=== PATIENT | female | born 1970 | race American Indian/Alaskan Native ===

== ENCOUNTER 2016-08-18 14:47 | Inpatient (IN) | payer OTHER ==
--- NOTE | 2016-08-18 16:53 | XRay Report ---
ROUTINE CHEST, TWO VIEWS: Shortness of breath. PA and lateral views demonstrate the heart and mediastinal contour to be of normal size and shape. The lungs are clear and fully expanded and the soft tissues and bony structures are normal. IMPRESSION: Normal study.
[2016-08-18 17:51] LABS: Basophils % (Auto) 0.5 % (0.0-1.8); Eosinophils % (Auto) 0.3 % (0.0-4.3); Mean Corpuscular HGB Conc 30 % (30-34); Platelet Count 267 K/mm3 (140-440); Red Blood Count 4.75 M/mm3 (3.65-5.03); Red Cell Distribution Width 18.9 % (13.2-15.2); White Blood Count 10.9 K/mm3 (4.5-11.0)
[2016-08-18 17:52] LABS: Mean Corpuscular Hemoglobin 21 pg (28-32); Mean Corpuscular Volume 70 fl (79-97)
[2016-08-18 18:10] LABS: Anion Gap 17 mmol/L; Blood Urea Nitrogen 7 mg/dL (7-17); Calcium 8.8 mg/dL (8.4-10.2); Carbon Dioxide 23 mmol/L (22-30); Chloride 99.6 mmol/L (98-107); Glucose 80 mg/dL (65-100); Potassium 3.9 mmol/L (3.6-5.0); Sodium 136 mmol/L (137-145)
[2016-08-18 18:50] LABS: Cholesterol 147 mg/dL (50-199); HDL Cholesterol 38 mg/dL (40-59); LDL Cholesterol,Direct 95 mg/dL (50-130); Triglycerides 74 mg/dL (2-149)
--- NOTE | 2016-08-18 23:57 | Emergency Department Report ---
HPI - General Chief Complaint: Chest Pain Time Seen by Provider: 08/18/16 23:29 - HPI HPI: This is a 46-year-old Afro-[place] female who was dropped off to be seen today with complaint of a one-week history of midsternal chest pain has been going on intermittently all week. Patient thought it is been indigestion because she has a history of gastritis. She tried some [place] for this without any relief. However 2 days ago she had some sharper pain that concerned her. And once again, this morning, the patient had a change with some intense burning sensation that woke her up from sleep. It radiates to the back as well as to the right jaw and shoulder. There is some intermittent shortness of breath. The patient took some Aleve this morning for some sciatica but not for her chest discomfort and it did not provide any relief. She does not have a primary care doctor. She denies any tobacco or illicit drug use or abuse. No recent travel or sick contacts at home. She denies any history of ME, CVA, PE/ DVT. ED Past Medical Hx - Past Medical History Hx Diabetes: Yes (GESTATIONAL WITH 1ST ) Additional medical history: GASTRITIS. OBESITY - Surgical History Additional Surgical History: TONSILLECTOMY. SEPTOPLASTY ? D & C. RIGHT FOOT ( BONE SHAVED) - Social History Smoking Status: Never Smoker Substance Use Type: None ED Review of Systems ROS: Stated complaint: CHEST PAIN/JAW PAIN Other details as noted in HPI Comment: All other systems reviewed and negative Constitutional: denies: chills, fever Eyes: denies: eye pain, eye discharge, vision change Respiratory: shortness of breath. denies: cough Cardiovascular: chest pain. denies: palpitations Gastrointestinal: denies: abdominal pain, nausea, diarrhea Genitourinary: denies: urgency, dysuria, discharge Musculoskeletal: denies: back pain, joint swelling, arthralgia Skin: denies: rash, lesions Neurological: denies: headache, weakness, paresthesias Physical Exam - Physical Exam Vital Signs: Vital Signs 08/18/16 15:08 Temperature 97.6 F Pulse Rate 100 H Respiratory 18 Rate Blood Pressure 160/114 O2 Sat by Pulse 100 Oximetry Physical Exam: GENERAL: The patient is well-developed well-nourished. HEENT: Normocephalic. Atraumatic. Extraocular motions are intact. Patient has moist mucous membranes. Pupils equal reactive to light bilaterally. NECK: Supple. Trachea is midline. CHEST/LUNGS: Clear to auscultation. There is no respiratory distress noted. Chest pain is not reproducible to palpation the chest wall. HEART/CARDIOVASCULAR: Regular. There is no tachycardia. There is no gallop rub or murmur. ABDOMEN: Abdomen is soft, nontender. Patient has normal bowel sounds. There is no abdominal distention. Obese habitus. SKIN: Skin is warm and dry. NEURO: The patient is awake, alert, and oriented. The patient is cooperative. The patient has no focal neurologic deficits. The patient has normal speech. MUSCULOSKELETAL: There is no tenderness or deformity. There is no limitation range of motion. There is no evidence of acute injury. ED Course Vital Signs 08/18/16 15:08 Temperature 97.6 F Pulse Rate 100 H Respiratory 18 Rate Blood Pressure 160/114 O2 Sat by Pulse 100 Oximetry ED Medical Decision Making - Lab Data Result diagrams: 08/18/16 17:33 08/18/16 17:33 - EKG Data -: EKG Interpreted by Me EKG shows normal: sinus rhythm, axis, intervals, QRS complexes, ST-T waves ( nonspecific ST-T waves) Rate: tachycardia (101 bpm) - EKG Data When compared to previous EKG there are: previous EKG unavailable Interpretation: nonspecific ST-T wave chana - Radiology Data Radiology results: report reviewed, image reviewed interpreted by me: Chest x-ray did not show any acute process. Heart is normal shape and size. No effusions. No pneumothorax. No signs of pneumonia seen. CT angiography of the chest does not show any signs of pulmonary embolism or aortic dissection or any acute process. - Medical Decision Making 46 year old female presents the emergency department with some intermittent midsternal chest pain over the past week. EKG does not show any signs of ST elevation ME, ischemia or dysrhythmia. Chest x-ray does not show any acute process. Patient's first troponin was elevated at 0.05. However the patient's second troponin came back even more elevated at 0.3. CT angiography was negative for pulmonary embolism or dissection. Patient was started on heparin and will be admitted to hospital for cardio consultation. Patient has been accepted for admission by the hospitalist, Dr. Evans. - Differential Diagnosis ME, PE, CHF, Pneumonia, GERD Critical Care Time: No Critical care attestation.: If time is entered above; I have spent that time in minutes in the direct care of this critically ill patient, excluding procedure time. ED Disposition Clinical Impression: NSTEMI (non-ST elevated myocardial infarction) Hypertension Qualifiers: Hypertension type: essential hypertension Qualified Code(s): I10 - Essential ( primary) hypertension Chest pain Qualifiers: Chest pain type: unspecified Qualified Code(s): R07.9 - Chest pain, unspecified Disposition: OP ADMITTED IP TO THIS HOSP Is pt being admited?: Yes Does the pt Need Aspirin: Yes Condition: Stable Instructions: Hypertension (ED), Chest Pain (ED) Referrals: PRIMARY CARE, [Primary Care Provider] - 3-5 Days Time of Disposition: 02:36
[2016-08-19 00:36] LABS: INR 1.07 (0.87-1.13)
[2016-08-19 00:37] LABS: Partial Thromboplastin Time 27.4 Sec. (24.2-36.6)
[2016-08-19] MEDS ORDERED: NACL ONE (00:56)
--- NOTE | 2016-08-19 01:36 | Admit Criteria Form ---
Admission Criteria Documentation: CARDIOLOGY GRG Clinical Indications for Admission to Inpatient Care ( Place 'X' for any and all applicable criteria): Hospital admission is needed for appropriate care of the patient because of ANY ONE of the following (1): [ ] I. Hemodynamic instability as indicated by ALL of the following (1)(2)(3) (4)(5) [ ]a) Vital signs or other findings not as expected for chronic patient condition or baseline [ ]b) Instability indicated by ANY ONE of the following: [ ]i) Hypotension [ ]ii) Symptomatic Tachycardia unresponsive to treatment ( e.g., analgesia, fluids, sedation as indicated) [ ]iii) Inadequate perfusion indicated by ANY ONE of the following: [ ] 1) Lactic acidosis (> 2 mmol/L) [ ] 2) New abnormal capillary refill (> 3 seconds) [ ] 3) Reduced urine output [ ] 4) New altered mental status [ ]iv) Orthostatic vital sign changes unresponsive to treatment (e.g., fluids) [ ]v) IV inotropic or vasopressor medication required to maintain adequate blood pressure or perfusion [ ] II. Severe heart failure as indicated by ANY ONE of the following(17)(18) [ ]a) Respiratory distress [ ]b) Hypotension [ ]c) Anasarca (refractory to outpatient therapy) [ ]d) Cardiac arrhythmias of immediate concern [ ]e) Myocardial ischemia [ ] III. Cardiac arrhythmias or findings of immediate concern indicated by ANY ONE of the following (19)(20): [ ] a) Heart rhythms that are inherently dangerous or unstable indicated by ANY ONE of the following (21)(22)(23): [ ] i) Resuscitated ventricular fibrillation or cardiac arrest [ ] ii) Ventricular escape rhythm [ ] iii) Sustained ventricular tachycardia (30 seconds or more of ventricular rhythm at greater than 100 beats per minute) [ ] iv) Nonsustained ventricular tachycardia and ANY ONE of the following: [ ] 1) Suspected cardiac ischemia as cause or consequence of ventricular tachycardia [ ] 2) In setting of acute myocarditis [ ] b) Unstable cardiac conduction defects indicated by ANY ONE of the following(23)(24)(25) [ ] i) Type II second-degree atrioventricular block [ ]ii) Third-degree atrioventricular block [ ]iii) New-onset left bundle branch block with suspected myocardial ischemia [ ]c) Any heart rhythm and ANY ONE of the following (21)(22)(26)(27) (28) [ ] i) Continuous long-term ECG monitoring needed (e.g., initiation of drug requiring monitoring for more than 24 hours) [ ] ii) Patient has automatic implanted cardioverter defibrillator that is repeatedly firing, malfunctioning, or in need of immediate adjustment of settings beyond the scope of ambulatory or observation care [ ]d) Heart rhythms of concern due to ANY ONE of the following: [ ] i) Hypotension [ ] ii) Respiratory distress [ ] iii) Association with other significant symptoms (e.g., bradycardia with syncope or ongoing dizziness, supraventricular tachycardia with chest pain (14)(15)(17) [ ] IV. Monitoring for cardiac contusion beyond the scope of observation care needed [A](30)(31)(32) [ ] V. Surgical or device complication (e.g., valve replacement complication , pacemaker dysfunction) (35)(41)(44)(45)(46) [ ] . Inpatient palliative care needed. [B](49) Also use Inpatient Palliative Care Criteria [ ] VII. Nonbacterial thrombotic (marantic) endocarditis (36)(43)(47)(48) [ X] VIII. Cardiology condition, symptom, or finding for which emergency and observation care has failed or are not considered appropriate. [ ] IX. Acute valvular disease requiring inpatient as indicated by ANY ONE of the following (41) [ ]a) Acute valvular regurgitation (42) [ ]b) Noninfectious valvulitis (43) [ ]c) Obstructive valve thrombosis [ ]d) Paravalvular leak [ ]e) Other significant valvular disorder remaining after emergency or observation level of care (as appropriate) [ ]X. Pericardial disease requiring inpatient treatment as indicated by ANY ONE of the following (33)(34)(35)(36)(37) [ ]a) Suspected tamponade (38)(39)(40) [ ]b) Hemopericardium [ ]c) Other significant pericardial disorder remaining after emergency or observation level of care (as appropriate) [ ] XI. Cardiac ischemia beyond scope of emergency and observation care. [ ] XII. Hypertension requiring inpatient treatment as indicated by ANY ONE of the following (6)(7)(8) [ ]a) SBP greater than 220 mm Hg or DBP greater than 120 mmHg despite treatment [ ]b) SBP greater than 140 mm Hg or DBP greater than 100 mm Hg with evidence of acute end organ damage as indicated by ANY ONE of the following [ ] i) Altered mental status [ ] ii) Acute renal failure as indicated by new onset of ANY ONE of the following (9)(10)(11)(12)(13) [ ]1) 3-fold rise in serum creatinine from baseline [ ]2) Serum creatinine greater than 4 mg/dL ( 354 micromoles/L) with acute rise greater than 0.5 mg/dL (44.2 micromoles/L) [ ]3) Reduction of more than 75% in estimated glomerular filtration rate from baseline [ ]4) Estimated glomerular filtration rate less than 35 mL/min/1.73m2 (0.59 mL/sec/1.73m2) in child up to 18 years of age [ ]5) Cessation of urine output indicated by ALL of the following [ ]A. Adequate volume status [ ]B. Inadequate urine output as indicated by ANY ONE of the following [ ]a. Urine output less than 0.3 mL/kg/hr for 24 hours [ ]b. Anuria (urine output less than 0.1 mL/kg/hr) for 12 hours [ ] iii) Aortic dissection [ ] iv) Myocardial Ischemia [ ] v) Left ventricular heart failure [ ]vi) Retinal Hemorrhage [ ]vii) Other significant finding [ ]c) Hypertension in child requiring inpatient treatment as indicated by ALL of the following(14)(15)(16) [ ] i) Outpatient treatment not effective, not available, or not appropriate [ ]ii) SBP or DBP greater than 95th percentile for age [ ]iii) Evidence of acute end organ damage as indicated by ANY ONE of the following [ ]1) Altered mental status [ ]2) Acute renal failure as indicated by new onset of ANY ONE of the following(9)(10)(11)(12)(13) [ ]A. 3-fold rise in serum creatinine from baseline [ ]B. Serum creatinine greater than 4 mg/dL (354 micromoles/L) with acute rise greater than 0.5 mg/dL (44.2 micromoles/L) [ ]C. Reduction of more than 75% in estimated glomerular filtration rate from baseline [ ]D. Estimated glomerular filtration rate less than 35 mL/min/1.73m2 (0.59 mL/sec/1.73m2) in child up to 18 years of age [ ]E. Cessation of urine output indicated by ALL of the following [ ]a. Adequate volume status [ ]b. Inadequate urine output as indicated by ANY ONE of the following [ ]i) Urine output less than 0.3 mL/kg/hr for 24 hours [ ]ii) Anuria ( urine output less than 0.1 mL/kg/hr) for 12 hours [ ]3) Severe headache [ ]4) Visual disturbance [ ]5) Retinal hemorrhage [ ]6) Other significant finding [ ]XIII. Complications of transplanted heart indicated by ANY ONE of the following(61): [ ]a) Acute graft rejection requiring inpatient management (eg, intravenous immunosuppression)(62)(63) [ ]b) Acute graft heart failure indicated by ANY ONE of the following(64): [ ]i) Hemodynamic instability [ ]ii) Cardiac arrhythmias of immediate concern [ ]iii) Pulmonary edema that is very severe (eg, mechanical ventilation needed, imminent or likely, need for 100% oxygen to keep oxygen saturation above 90%) [ ]iv) Pulmonary edema that is persistent as indicated by ALL of the following: [ ]1) New need for oxygen therapy to keep oxygen saturation above 90% (or increased FiO2 need from baseline) [ ]2) Has not improved sufficiently with emergency department or observation care IV diuretics or other heart failure treatments[E] [ ]v) Altered mental status that is severe or persistent [ ]vi) Increased creatinine (new on laboratory test) with reduction of more than 50% in estimated glomerular filtration rate from baseline [ ]vii) Progressively (ongoing) rising creatinine (known from past laboratory test) with reduction of more than 25% in estimated glomerular filtration rate from baseline [ ]viii) Acute renal failure [ ]ix) Acute peripheral ischemia (eg, examination shows pulseless, cool, mottled, or cyanotic extremity) [ ]x) Pulmonary artery catheter monitoring needed [ ]xi) Other sign or symptom of heart failure requiring inpatient treatment (ie, too severe or not responsive to outpatient and observation care treatment) [ ]c) Infection requiring inpatient management (eg, Hemodynamic instability, need for intravenous antimicrobial treatment)(66)(67)(68)(69)(70) [ ]d) Cardiac allograft vasculopathy requiring inpatient management ( eg evidence of cardiac ischemia)(71) [ ]e) Other complication of transplanted heart (eg, stroke, severe pulmonary hypertension, severe valvular dysfunction) requiring inpatient management(72) The original [facility] content created by [facility] has been revised. The portions of the content which have been revised are identified through the use of italic text or in bold, and [facility] has neither reviewed nor approved the modified material. All other unmodified content is copyright [facility] [employer]. Please see references footnoted in the original [facility] [employer] edition 2016 Admission Criteria Met: Yes
[2016-08-19] MEDS ORDERED: HEPARIN 10,000 UNITS/10 ML IV ONE (02:05)
[2016-08-19] MEDS ORDERED: NORMODYNE IV ONE (02:06)
--- NOTE | 2016-08-19 02:11 | Cat Scan Report ---
FINAL REPORT EXAM: CT ANGIO CHEST HISTORY: CP, elevated dimer TECHNIQUE: Enhanced CT of the chest at 2.5 mm axial intervals following a pulmonary embolism protocol. Coronal and sagittal imaging were also obtained. Oblique coronal MIP projections were obtained. PRIORS: None. FINDINGS: There is no evidence for pulmonary embolism in the main pulmonary artery, right and left pulmonary arteries or their major distributions. However, CT does not exclude distal pulmonary emboli. Otherwise, the lung parenchyma are expanded and clear with no evidence for parenchymal nodules, infiltrates, congestion, or pleural effusion. There is no evidence for mediastinal, hilar, or axillary adenopathy. Cardiovascular structures are within normal limits. Images through the lung bases include the upper abdomen which show no abnormalities of the visualized abdominal viscera. There is an incidental diastasis in the posterior left hemidiaphragm through which abdominal fat is herniated into the left lung base posteriorly. Bony structures demonstrate no focal abnormalities. Anterior osteophytes are present off the lower thoracic spine. Degenerative disc changes are also noted throughout the thoracic spine. IMPRESSION: No evidence for pulmonary embolism.
[2016-08-19] MEDS ORDERED: BABY ASPIRIN PO ONE (02:36)
[2016-08-19 02:41] LABS: INR 1.1 (0.87-1.13)
[2016-08-19] MEDS: HEPARIN/ 0.45% NACL-25,000 UNIT/500 ML 25,000 UNIT/500 ML BAG IV SCH ×3 (02:41→21:19)
[2016-08-19 02:42] LABS: Partial Thromboplastin Time 28.5 Sec. (24.2-36.6)
[2016-08-19] MEDS ORDERED: DULCOLAX PR PRN (04:02)
[2016-08-19] MEDS ORDERED: TYLENOL PO PRN (04:02)
[2016-08-19] MEDS ORDERED: ZOFRAN IV PRN (04:02)
[2016-08-19] MEDS ORDERED: MILK OF MAGNESIA PO PRN (04:02)
--- NOTE | 2016-08-19 04:02 | Event Note ---
Date: 08/19/16 See H/p in reports NSTEMI
[2016-08-19] MEDS ORDERED: MORPHINE ONE (04:03)
[2016-08-19] MEDS ORDERED: SODIUM CHLORIDE FLUSH SYRINGE 10 ML IV PRN (04:13)
[2016-08-19] MEDS ORDERED: MORPHINE IV ONE (04:16)
[2016-08-19] MEDS ORDERED: ZOFRAN ONE (04:39)
[2016-08-19 06:04] LABS: Creatine Kinase MB 40.9 ng/mL (0.0-4.0)
[2016-08-19] MEDS ORDERED: LEXISCAN IV ONE (08:01)
[2016-08-19 08:57] LABS: Creatine Kinase MB 42.6 ng/mL (0.0-4.0)
[2016-08-19] MEDS: PERCOCET 5/325 PO PRN (10:33)
[2016-08-19] MEDS: COREG PO SCH ×2 (10:33→21:40)
[2016-08-19] MEDS: COZAAR PO SCH (10:34)
--- NOTE | 2016-08-19 11:27 | Consultation ---
History of Present Illness Consult date: 08/19/16 Consult reason: abnormal cardiac enzymes History of present illness: Impression Unstable Angina NSTEMI Plan Cardiac cath recommended pt will discuss with family about whether to proceed IV heparin for 48 hrs, pit is chest pain free ASA, statin, b-sharifa Past History Social history: no significant social history. denies: smoking Medications and Allergies Allergies Allergy/AdvReac Type Severity Reaction Status Date / Time latex Allergy Anaphylaxis Verified 08/18/16 15:06 tree nut Allergy Anaphylaxis Verified 08/18/16 15:06 Active Meds: Active Medications Acetaminophen (Tylenol) 650 mg PO Q4H PRN PRN Reason: Pain MILD(1-3)/Fever >100.5/CASTAEÑDA Bisacodyl (Dulcolax) 10 mg [place] QDAY PRN PRN Reason: Constipation unrelieved by MOM Carvedilol (Coreg) 12.5 mg PO BID ALEKSANDAR Last Admin: 08/19/16 10:33 Dose: 12.5 mg Hydromorphone HCl (Dilaudid) 0.5 mg IV Q3H PRN PRN Reason: Pain , Severe (7-10) Heparin Sodium/Sodium Chloride (Heparin/ 0.45% Nacl-25,000 Unit/500 Ml) 25,000 unit in 500 mls @ 20 mls/hr IV TITRATE ALEKSANDAR; 1,000 UNITS/HR PRN Reason: Protocol Last Admin: 08/19/16 10:45 Dose: 1,150 units/hr, 23 mls/hr Dextrose/Sodium Chloride (D5/0.45ns) 1,000 mls @ 75 mls/hr IV DIRECT ALEKSANDAR Losartan Potassium (Cozaar) 100 mg PO QDAY ALEKSANDAR Last Admin: 08/19/16 10:34 Dose: 100 mg Magnesium Hydroxide (Milk Of Magnesia) 30 ml PO Q4H PRN PRN Reason: Constipation Ondansetron HCl (Zofran) 4 mg IV Q8H PRN PRN Reason: N/V unrelieved by Reglan Oxycodone/Acetaminophen (Percocet 5/325) 1 tab PO Q6H PRN PRN Reason: Pain, Moderate (4-6) Last Admin: 08/19/16 10:33 Dose: 1 tab Sodium Chloride (Sodium Chloride Flush Syringe 10 Ml) 10 ml IV PRN PRN PRN Reason: LINE FLUSH Review of Systems All systems: negative (in impression) Physical Examination Vital Signs Temp Pulse Resp BP Pulse Ox 97.6 F 100 H 18 160/114 100 08/18/16 15:08 08/18/16 15:08 08/18/16 15:08 08/18/16 15:08 08/18/16 15:08 General appearance: no acute distress HEENT: Positive: PERRL, EOMI Neck: Positive: neck supple Cardiac: Positive: Reg Rate and Rhythm, S1/S2 Lungs: Positive: Normal Exam Neuro: Positive: Grossly Intact Abdomen: Positive: Unremarkable, Soft Results 08/18/16 17:33 08/18/16 17:33 Cardiac Enzymes 08/19/16 08/19/16 Range/Units 05:12 07:41 CK-MB (CK-2) 40.9 H 42.6 H (0.0-4.0) ng/mL
[2016-08-19] MEDS ORDERED: ASPIRIN PO ONE (11:28)
--- NOTE | 2016-08-19 15:00 | History and Physical Report ---
CHIEF COMPLAINT: Left-sided chest pain for 1 week. HISTORY OF PRESENT ILLNESS: A 46-year-old -[place] female with history of obesity and gastritis, comes in for left-sided chest pain of 1 week duration. The patient has been thinking that it is indigestion and gastritis. Pain is about 6-7 on a scale of 1-10. It wakes her from sleep. It radiates to the right jaw and shoulder. Intermittent shortness of breath present. No palpitations. No diaphoresis. DEAN score is zero. PAST MEDICAL HISTORY: Gestational diabetes, gastritis, and obesity. PAST SURGICAL HISTORY: Tonsillectomy and septoplasty, D and C and right foot surgery. SOCIAL HISTORY: Does not smoke. No alcohol, no recreational drugs. FAMILY HISTORY: Significant for hypertension. REVIEW OF SYSTEMS: Other than chest pain, 14-point review of systems negative. Slight shortness of breath present. All systems reviewed and essentially negative. PHYSICAL EXAMINATION: GENERAL: Middle-aged female, cooperative during examination. VITAL SIGNS: Blood pressure 160/114, temperature is 97.6, pulse is 100, respiratory rate is 18. HEENT: Unremarkable. Pupils equal and reactive. NECK: Supple, no lymphadenopathy, no thyromegaly. LUNGS: Clear to auscultation and percussion. Good air entry. CARDIOVASCULAR: S1, S2 heard. No gallop, no murmur, no rub. Apical impulse in left fifth intercostal space and midclavicular line. ABDOMEN: Soft and benign. No hepatosplenomegaly. No guarding, no rigidity. Hernial orifices are normal. EXTREMITIES: Good pedal pulses. No pedal edema. CENTRAL NERVOUS SYSTEM: Alert and oriented x 4, nonfocal exam. LABORATORY DATA: EKG shows ST-T wave nonspecific changes. Heart rate of 101. CT angiography does not show any pulmonary embolism. Labs, electrolytes are normal. Sodium is 136, slightly low. H and H are 10.0 and 33.0, slightly anemic. ASSESSMENT AND PLAN: 1. Chest pain, rule out myocardial infarction, chest pain protocol. Serial cardiac enzymes and Lexiscan scan. 2. Hypertension, new onset. 3. Losartan 100 mg daily started. The patient does not take any medications for hypertension 4. Obesity. The patient is counseled. 5. Deep venous thrombosis prophylaxis, Lovenox 40 mg subcutaneously daily. [facility]# [id number] JEAN/CARMEN
[2016-08-19] MEDS: DILAUDID IV PRN (19:34)
[2016-08-19] MEDS: D5/0.45NS 1,000 ML IV SCH (19:35)
[2016-08-20] MEDS: HEPARIN/ 0.45% NACL-25,000 UNIT/500 ML 25,000 UNIT/500 ML BAG IV SCH ×3 (01:16→23:57)
[2016-08-20 08:26] LABS: Basophils % (Auto) 0.2 % (0.0-1.8); Eosinophils % (Auto) 0.1 % (0.0-4.3); Mean Corpuscular HGB Conc 30 % (30-34); Mean Corpuscular Volume 70 fl (79-97); Platelet Count 249 K/mm3 (140-440); Red Blood Count 4.29 M/mm3 (3.65-5.03); Red Cell Distribution Width 18.5 % (13.2-15.2)
[2016-08-20 08:34] LABS: Hemoglobin 8.9 gm/dl (10.1-14.3)
[2016-08-20 08:35] LABS: Hematocrit 30.1 % (30.3-42.9); Mean Corpuscular Hemoglobin 21 pg (28-32)
[2016-08-20 08:48] LABS: Anion Gap 16 mmol/L; BUN/Creatinine Ratio 6.66; Blood Urea Nitrogen 4 mg/dL (7-17); Calcium 8.6 mg/dL (8.4-10.2); Carbon Dioxide 23 mmol/L (22-30); Chloride 102.7 mmol/L (98-107); Glucose 116 mg/dL (65-100); Sodium 138 mmol/L (137-145)
--- NOTE | 2016-08-20 11:02 | Progress Note ---
Subjective Date of service: 08/20/16 Interval history: Impression Unstable Angina NSTEMI Plan Cardiac cath recommended will proceed on Sunday IV heparin for 48 hrs, pit is chest pain free ASA, statin, b-sharifa Objective Vital Signs Temp Pulse Pulse Resp BP Pulse Ox 08/20/16 08:35 97.9 F 98 H 20 121/86 98 08/20/16 08:19 97 H 08/20/16 05:54 98.9 F 93 H 21 129/73 96 08/20/16 00:00 98.1 F 85 20 117/82 100 08/19/16 23:15 95 H 08/19/16 23:07 20 08/19/16 19:54 97.8 F 95 H 21 148/85 100 08/19/16 19:34 18 08/19/16 17:10 98.0 F 86 20 169/110 100 - Physical Examination HEENT: Positive: PERRL, EOMI Neck: Positive: neck supple Cardiac: Positive: Reg Rate and Rhythm, S1/S2 Lungs: Positive: Normal Exam Neuro: Positive: Grossly Intact Abdomen: Positive: Unremarkable, Soft - Labs and Meds CBC 08/20/16 Range/Units 07:32 WBC 13.0 H (4.5-11.0) K/mm3 RBC 4.29 (3.65-5.03) M/mm3 Hgb 8.9 L (10.1-14.3) gm/dl Hct 30.1 L (30.3-42.9) % Plt Count 249 (140-440) K/mm3 Lymph # 3.0 (1.2-5.4) K/mm3 [place] # 1.2 H (0.0-0.8) K/mm3 Eos # 0.0 (0.0-0.4) K/mm3 Baso # 0.0 (0.0-0.1) K/mm3 Comprehensive Metabolic Panel 08/20/16 Range/Units 07:32 Sodium 138 (137-145) mmol/L Potassium 4.0 (3.6-5.0) mmol/L Chloride 102.7 (98-107) mmol/L Carbon Dioxide 23 (22-30) mmol/L BUN 4 L (7-17) mg/dL Creatinine 0.6 L (0.7-1.2) mg/dL Glucose 116 H (65-100) mg/dL Calcium 8.6 (8.4-10.2) mg/dL
[2016-08-20] MEDS: COREG PO SCH ×2 (11:04→21:13)
[2016-08-20] MEDS: COZAAR PO SCH (11:04)
[2016-08-20] MEDS ORDERED: FIORICET PO PRN (13:20)
--- NOTE | 2016-08-20 13:22 | Progress Note ---
Assessment and Plan Assessment and plan: 46 years old morbidly obese -Wel[place] female admitted for chest pain and found to have NSTEMI 1. NSTEMI/Unstable angina Started on heparin drip, antiplatelet therapy, statin, BB and ACEI Evaluated by cardiology and scheduled for cardiac cath tomorrow morning 2. Microcytis anemia Check iron studies Monitor H&H 3. Hyperglycemia Stress reaction, hemoglobin A1c 5.3 4. Morbid obesity Counseled regarding importance of losing weight and lifestyle changes 5. DVT prophylaxis On heparin drip for #1 History Interval history: no chest pain this morning, nauseated, c/o headache decided to undergo cardiac cath Hospitalist Physical - Constitutional Vitals: Temp Pulse Resp BP Pulse Ox 97.9 F 98 H 20 121/86 98 08/20/16 08:35 08/20/16 08:35 08/20/16 08:35 08/20/16 08:35 08/20/16 08:35 General appearance: Present: no acute distress, obese (morbidly) - EENT Eyes: Present: PERRL, EOM intact. Absent: scleral icterus, conjunctival injection - Neck Neck: Present: supple, normal ROM. Absent: masses or JVD - Respiratory Respiratory effort: normal Respiratory: bilateral: CTA, negative: rhonchi, wheezing - Cardiovascular Rhythm: other (tachycardic) - Extremities Extremities: no ischemia - Abdominal General gastrointestinal: soft, non-tender, non-distended, normal bowel sounds - Integumentary Integumentary: Present: warm, dry. Absent: jaundice, rash - Psychiatric Psychiatric: cooperative - Neurologic Neurologic: CNII-XII intact, no focal deficits Results - Labs CBC & Chem 7: 08/20/16 07:32 08/20/16 07:32 Labs: Laboratory Last Values WBC 13.0 K/mm3 (4.5-11.0) H 08/20/16 07:32 RBC 4.29 M/mm3 (3.65-5.03) 08/20/16 07:32 Hgb 8.9 gm/dl (10.1-14.3) L 08/20/16 07:32 Hct 30.1 % (30.3-42.9) L 08/20/16 07:32 MCV 70 fl (79-97) L 08/20/16 07:32 MCH 21 pg (28-32) L 08/20/16 07:32 MCHC 30 % (30-34) 08/20/16 07:32 RDW 18.5 % (13.2-15.2) H 08/20/16 07:32 Plt Count 249 K/mm3 (140-440) 08/20/16 07:32 Lymph % (Auto) 23.3 % (13.4-35.0) 08/20/16 07:32 Cocke % (Auto) 9.3 % (0.0-7.3) H 08/20/16 07:32 Eos % (Auto) 0.1 % (0.0-4.3) 08/20/16 07:32 Baso % (Auto) 0.2 % (0.0-1.8) 08/20/16 07:32 Lymph # 3.0 K/mm3 (1.2-5.4) 08/20/16 07:32 Cocke # 1.2 K/mm3 (0.0-0.8) H 08/20/16 07:32 Eos # 0.0 K/mm3 (0.0-0.4) 08/20/16 07:32 Baso # 0.0 K/mm3 (0.0-0.1) 08/20/16 07:32 Seg Neutrophils % 67.1 % (40.0-70.0) 08/20/16 07:32 Seg Neutrophils # 8.7 K/mm3 (1.8-7.7) H 08/20/16 07:32 PT 14.1 Sec. (12.2-14.9) 08/19/16 02:10 INR 1.10 (0.87-1.13) 08/19/16 02:10 APTT 28.5 Sec. (24.2-36.6) 08/19/16 02:10 D-Dimer 380.96 ng/mlDDU (0-234) H 08/19/16 00:04 Heparin Anti-Xa Level 0.61 U.I./ml (0.3-0.7) 08/20/16 07:28 Sodium 138 mmol/L (137-145) 08/20/16 07:32 Potassium 4.0 mmol/L (3.6-5.0) 08/20/16 07:32 Chloride 102.7 mmol/L (98-107) 08/20/16 07:32 Carbon Dioxide 23 mmol/L (22-30) 08/20/16 07:32 Anion Gap 16 mmol/L 08/20/16 07:32 BUN 4 mg/dL (7-17) L 08/20/16 07:32 Creatinine 0.6 mg/dL (0.7-1.2) L 08/20/16 07:32 Estimated GFR > 60 ml/min 08/20/16 07:32 BUN/Creatinine Ratio 6.66 % 08/20/16 07:32 Glucose 116 mg/dL (65-100) H 08/20/16 07:32 Hemoglobin A1c 5.3 % (4-6) 08/19/16 05:12 Calcium 8.6 mg/dL (8.4-10.2) 08/20/16 07:32 Total Creatine Kinase 562 units/L (30-135) H 08/19/16 07:41 CK-MB (CK-2) 42.6 ng/mL (0.0-4.0) H 08/19/16 07:41 CK-MB (CK-2) Rel Index 7.5 (0-4) H 08/19/16 07:41 Troponin T 0.558 ng/mL (0.00-0.029) H* D 08/19/16 07:41 Triglycerides 74 mg/dL (2-149) 08/18/16 17:33 Cholesterol 147 mg/dL (50-199) 08/18/16 17:33 LDL Cholesterol Direct 95 mg/dL (50-130) 08/18/16 17:33 HDL Cholesterol 38 mg/dL (40-59) L 08/18/16 17:33 Cholesterol/HDL Ratio 3.86 % 08/18/16 17:33 - Imaging and Cardiology Chest x-ray: image reviewed CT scan - chest: report reviewed (no PE)
[2016-08-20] MEDS: DILAUDID IV PRN (20:13)
[2016-08-20] MEDS: D5/0.45NS 1,000 ML IV SCH (20:15)
[2016-08-20] MEDS ORDERED: APRESOLINE IV PRN (20:24)
[2016-08-20] MEDS: PERCOCET 5/325 PO PRN (23:57)
[2016-08-21 05:17] LABS: INR 1.18 (0.87-1.13)
[2016-08-21 05:38] LABS: Basophils % (Auto) 0.1 % (0.0-1.8); Eosinophils % (Auto) 0.2 % (0.0-4.3); Hemoglobin 8.6 gm/dl (10.1-14.3); Mean Corpuscular HGB Conc 30 % (30-34); Platelet Count 233 K/mm3 (140-440); Red Blood Count 4.17 M/mm3 (3.65-5.03); Red Cell Distribution Width 19.1 % (13.2-15.2); White Blood Count 13.4 K/mm3 (4.5-11.0)
[2016-08-21 05:39] LABS: Mean Corpuscular Hemoglobin 21 pg (28-32); Mean Corpuscular Volume 69 fl (79-97)
[2016-08-21 06:02] LABS: Anion Gap 15 mmol/L; Calcium 8.5 mg/dL (8.4-10.2); Carbon Dioxide 23 mmol/L (22-30); Chloride 103.9 mmol/L (98-107); Creatine Kinase 158 units/L (30-135); Glucose 118 mg/dL (65-100); Iron 21 ug/dL (37-170); Potassium 4.1 mmol/L (3.6-5.0); Sodium 138 mmol/L (137-145); Total Iron Binding Capacity 308 mcg/dL (250-450)
[2016-08-21 06:10] LABS: Blood Urea Nitrogen 5 mg/dL (7-17)
[2016-08-21] MEDS: COZAAR PO SCH (10:27)
[2016-08-21] MEDS: COREG PO SCH (10:29)
[2016-08-21] MEDS: D5/0.45NS 1,000 ML IV SCH (10:30)
[2016-08-21] MEDS ORDERED: HEPARIN/NS 5000 UNIT/500ML(CATH LAB) 1,000 ML IR ONE (11:02)
[2016-08-21] MEDS ORDERED: NITROGLYCERIN SYRINGE 0 ML ONE (11:03)
[2016-08-21] MEDS ORDERED: VERSED ONE (11:03)
[2016-08-21] MEDS ORDERED: XYLOCAINE 2% INFILTRATI ONE (11:03)
[2016-08-21] MEDS ORDERED: HEPARIN 10,000 UNITS/10 ML ONE (11:03)
[2016-08-21] MEDS ORDERED: SUBLIMAZE ONE (11:04)
--- NOTE | 2016-08-21 12:16 | Event Note ---
Date: 08/21/16 Cardiac cath via R femoral. No complications. Findings: 1. Occluded small <2mm Ramus brach-this is likely the JIE. 2. Otherwise essentially normal coronaries. 3. LVEF 55-60%. Recommend medical therapy to include ASA/Plavix/betablockers and statins. Ok for cardiac discharge.
--- NOTE | 2016-08-21 12:26 | Cardiac Catherization Report ---
CARDIAC CATHETERIZATION REASON FOR PROCEDURE: The patient presented with chest pain and elevated cardiac isoenzymes consistent with a non-ST elevation myocardial infarction. A cardiac catheterization was recommended. DESCRIPTION OF PROCEDURE: The patient was prepped and draped in a sterile fashion after informed consent. Right femoral artery was entered using the Seldinger technique followed by placement of a 6-Anguillan sheath. Selective left and right coronary angiography was performed using #4 left and right Betzy catheters. Pigtail catheter was used for left ventricle angiography. The catheters were removed, sheath removed, and hemostasis achieved using an Angio-Seal device. The patient was returned to the postprocedure unit in stable condition. There were no complications. FINDINGS: HEMODYNAMICS: Left ventricle end diastolic pressure was 15. Ascending aortic pressure 130/89. There was no significant pressure gradient on pullback across the aortic valve. CORONARY ANGIOGRAPHY: The left main coronary artery was free of significant disease. The left anterior descending artery contained mild atherosclerosis of its proximal segment. There was up to 10-20% luminal stenosis of the proximal LAD. Otherwise, the LAD and diagonal branches were free of significant disease. A small caliber, less than 2 mm ramus intermedius artery was found to be occluded in its mid segment. There was no significant forward flow. This is presumed to be the infarct related lesion. The circumflex was a large system. This vessel and its obtuse marginal branches were angiographically normal. The right coronary artery was dominant. This vessel contained mild luminal irregularities in its proximal segment, otherwise also free of significant disease. There was normal left ventricular systolic function, ejection fraction 55-60%. CONCLUSION: 1. Complete occlusion of a small caliber, less than 2 mm diameter ramus intermedius artery. This appears to be the infarct-related lesion. 2. Otherwise, essentially angiographically normal vessels. 3. Normal left ventricular systolic function, ejection fraction 55-60%. RECOMMENDATION: Occluded small caliber ramus intermedius artery is not suitable for percutaneous revascularization and will be recommended for medical therapy. JOB# [id number] RAMIREZ/CARMEN
[2016-08-21] MEDS ORDERED: PLAVIX PO SCH (13:00)
[2016-08-21] MEDS ORDERED: NACL 0.9% 1000 ML 1,000 ML IV SCH (13:00)
[2016-08-21] MEDS ORDERED: HALFPRIN EC PO SCH (13:00)
--- NOTE | 2016-08-21 14:08 | Discharge Summary ---
Providers - Providers Date of Admission: 08/19/16 04:02 Date of discharge: 08/21/16 Attending physician: BRIAN BOWER 08/19/16 Consult to Cardiac Rehabilitation [CONS] Routine Reason For Exam: Phase I 08/21/16 12:18 Consult to Cardiac Rehabilitation [CONS] Routine Reason For Exam: Cardiac Rehab Evaluation Primary care physician: BANKRUPTCY ASSISTANT Hospitalization Condition: Stable Hospital course: NSTEMI bmi 49.2, weight loss stress htn per Cardiology, dr. Ramirez" Cardiac cath via R femoral. No complications. Findings: 1. Occluded small <2mm Ramus brach-this is likely the JIE. 2. Otherwise essentially normal coronaries. 3. LVEF 55-60%. Recommend medical therapy to include ASA/Plavix/betablockers and statins. Ok for cardiac discharge." Disposition: DISCHARGED TO HOME OR SELFCARE Core Measure Documentation - Palliative Care Palliative Care/ Comfort Measures: Not Applicable - Core Measures Any of the following diagnoses?: acute LA - VTE Discharge Requirements Deep Vein Thrombosis/Pulmonary Embolism Present on Admission: No Has pt received <5 days of overlap therapy or INR<2.0: No Anticoagulant overlap therapy prescribed at discharge: No Contraindication No Overlap Therapy order at DC: Not Indicated - Acute LA Discharge Requirements Aspirin at discharge: Yes JUHI/ARB for LVSD if EF <40%: Yes Beta sharifa at discharge: Yes Statin for LDL = or >100 mg/dl on DC: Yes Exam - Physical Exam Narrative exam: GEN: WDWN, NAD, AWAKE, ALERT, ORIENTATED 3 HEENT: NCAT, PERRL, EOMI, OP CLEAR NECK: SUPPLE, NO THYROMEGALY, NO JVD, NO LAD CVS: RRR, NORMAL S1S2 LUNGS/CHEST: CTA B, NORMAL CHEST EXPANSION B, GOOD AIR ENTRY B ABD: SOFT NTND, GBS, NO REBOUND OR GUARDING EXT/SKIN: NO SIGNIFICANT EDEMA OR RASH MSK: FROM X 4 EXTREMITIES NEURO: CN 2-12 GROSSLY INTACT, NO new FOCAL DEFICITS PSY: CALM - Constitutional Vitals: Temp Pulse Resp BP Pulse Ox 98.1 F 85 18 111/73 93 08/21/16 09:00 08/21/16 10:29 08/21/16 09:00 08/21/16 10:29 08/21/16 09:00 Plan Activity: advance as tolerated (no strenous activites until cleared by cardiology) Diet: low salt Follow up with: PRIMARY MD RENEE [Primary Care Provider] - 3-5 Days SHAGUFTA RAMIREZ MD [Staff Physician] - 7 Days Prescriptions: AtorvaSTATin [Lipitor] 40 mg PO QHS #30 tablet Aspirin EC [Aspirin Enteric Coated TAB] 81 mg PO QDAY #30 tablet Carvedilol [Coreg] 12.5 mg PO BID #60 tablet Clopidogrel [Plavix] 75 mg PO QDAY #30 tablet Losartan [Cozaar] 50 mg PO QDAY #30 tablet oxyCODONE /ACETAMINOPHEN [Percocet 5/325 mg] 1 tab PO Q6H PRN #15 tablet PRN Reason: Pain , Severe (7-10)
[2016-08-21] MEDS: DILAUDID IV PRN (17:36)
[2016-08-21 19:54] VITALS: BP 154/80
== END 2016-08-21 19:00 | disposition home or self-care (01) | DRG 281 ==
LOC: ED 14:47 → 4A 08-19 04:02
PROVIDERS: ADMIT Internal Medicine; ATTEND Internal Medicine
PROC: 4A023N7 Measurement of Cardiac Sampling and Pressure, Left Heart, Percutaneous Approach (ICD-10-PCS; principal; 2016-08-21)
PROC: B2111ZZ Fluoroscopy of Multiple Coronary Arteries using Low Osmolar Contrast (ICD-10-PCS; 2016-08-21)
PROC: B2151ZZ Fluoroscopy of Left Heart using Low Osmolar Contrast (ICD-10-PCS; 2016-08-21)
DX: I21.4 Non-ST elevation (NSTEMI) myocardial infarction (principal); Z68.42 Body mass index [BMI] 45.0-49.9, adult; I10 Essential (primary) hypertension; I20.0 Unstable angina; D50.9 Iron deficiency anemia, unspecified; R73.9 Hyperglycemia, unspecified; E66.01 Morbid (severe) obesity due to excess calories; Z91.040 Latex allergy status; Z88.8 Allergy status to other drugs, medicaments and biological substances; Z82.49 Family history of ischemic heart disease and other diseases of the circulatory system
CPT/HCPCS: 36415; 71020; 71275; 80048; 80061; 82550; 82553; 83036; 83550; 84484; 85025; 85379; 85520; 85610; 85730; 93005; 93010; 93458; 96374; 96375; A9270-GY; C1760; C1894; J0360; J1170; J1644; J2250; J2270; J2405; J2785; J3010; Q9967

== ENCOUNTER → 2017-05-17 | Outpatient (CLI) | payer OTHER | LOC: SLR 11:00 | PROVIDERS: ATTEND Specialist | DX: G47.30 Sleep apnea, unspecified (principal); R40.0 Somnolence; I10 Essential (primary) hypertension; J18.9 Pneumonia, unspecified organism | CPT/HCPCS: G0399 ==